=== PATIENT | female | born 1965 | race Caucasian/White ===

== ENCOUNTER 2018-06-28 20:26 | Emergency (ER) | payer BC ==
--- NOTE | 2018-06-28 20:40 | PDOC ---
History of Present Illness - History of Present Illness Initial Comments: The patient is a 52 year old female with a PMHx of high cholesterol and hyperthyroidism, who presents with redness, swelling and itching of right ankle s/p bug bite. The patient states that yesterday she was in [place] and noticed a bug bite on her right ankle. It soon became red, itchy, swollen and painful. She states that she took Motrin 1 hour ago and applied a topical ointment to the affected area. She denies any recent fever, chills, chest pain, shortness of breath, nausea, or vomiting. <Tracey Grimes - Last Filed: 06/28/18 20:53> <Jesús Lorenzana - Last Filed: 06/28/18 22:11> - General Chief Complaint: Bite Stated Complaint: FOOT SWELLING Time Seen by Provider: 06/28/18 20:33 Past History <Tracey Grimes - Last Filed: 06/28/18 20:53> - Past Medical History Thyroid Disease: Yes - Suicide/Smoking/Psychosocial Hx Smoking History: Current every day smoker Have you smoked in the past 12 months: Yes Number of Cigarettes Smoked Daily: 10 'Breaking Loose' booklet given: 11/20/16 Hx Alcohol Use: No Drug/Substance Use Hx: No Substance Use Type: None <Jesús Lorenzana - Last Filed: 06/28/18 22:11> - Past Medical History Allergies/Adverse Reactions: Allergies Allergy/AdvReac Type Severity Reaction Status Date / Time iodine Allergy Verified 11/20/16 04:17 Home Medications: Ambulatory Orders Cephalexin [Keflex] 500 mg PO BID #14 capsule 06/28/18 Levothyroxine [Synthroid -] 88 mcg PO DAILY 06/28/18 Rosuvastatin [Crestor -] 10 mg PO DAILY 06/28/18 Review of Systems - Review of Systems Comments:: A complete review of 10 out of 10 review of systems is taken and is negative apart from what is previously mentioned below and in the HPI. Constitutional: no recent illness; no fever ENT: no sore throat Cardiovascular: no palpitations; no chest pain Pulmonary: no cough; no trouble breathing Gastrointestinal: No nausea; no vomiting; no diarrhea Genitourinary: No urinary problems; no hematuria Skin: + Rt ankle bug bite with itching, swelling and redness. Lymph system: No swollen glands Musculoskeletal: No joint swelling Neurological: No weakness; No numbness; No Headache; no vertigo; no lightheadedness Psychiatric:No anxiety; no depression <Tracey Grimes - Last Filed: 06/28/18 20:53> *Physical Exam - Vital Signs Last Vital Signs Temp Pulse Resp BP Pulse Ox 98.9 F 86 16 150/80 96 06/28/18 20:27 06/28/18 20:27 06/28/18 20:27 06/28/18 20:27 06/28/18 20:27 - Physical Exam Comments: Vitals: Triage Vital signs reviewed General Appearance: no acute distress, well nourished well developed Extremities: Full range of motion to all extremities, no cyanosis, clubbing, or edema Skin: Bug bite to lateral right malleolus with swelling and some blanching faint errythema around foot. <Tracey Grimes - Last Filed: 06/28/18 20:53> ED Treatment Course - Medications Given in the ED: ED Medications Discontinued Medications Generic Name Dose Route Start Last Admin Trade Name Freq PRN Reason Stop Dose Admin Diphenhydramine HCl 50 mg 06/28/18 20:47 06/28/18 20:50 Benadryl - PO 06/28/18 20:48 50 mg ONCE ONE Administration Famotidine 20 mg 06/28/18 20:47 06/28/18 20:50 Pepcid - PO 06/28/18 20:48 20 mg ONCE ONE Administration <Tracey Grimes - Last Filed: 06/28/18 20:53> Medical Decision Making - Medical Decision Making Status post Benadryl rest and elevation swelling improved redness improved at this time history and physical examination consistent with ALLERGIC reaction from bug bite No obvious evidence at this point of infection Recommend rest ice Benadryl at home for the next day however if any redness worsening swelling worsening or streaking red lines or signs or symptoms of infection patient has been provided with a prescription for Keflex she advised to start Keflex and return to ED for any severe worsening symptoms or for any concerns. Findings, the need for follow-up, strict return instructions discussed with patient. <Jesús Lorenzana - Last Filed: 06/28/18 22:11> *DC/Admit/Observation/Transfer - Attestations Scribe Attestion: 06/28/18 20:57 Documentation prepared by Tracey Grimes, acting as medical cash poster for Jesús Lorenzana MD. <Tracey Grimes - Last Filed: 06/28/18 20:53> - Discharge Dispostion Decision to Admit order: No <Jesús Lorenzana - Last Filed: 06/28/18 22:11> Diagnosis at time of Disposition: Rash - Discharge Dispostion Disposition: HOME Condition at time of disposition: Stable - Prescriptions Prescriptions: Cephalexin [Keflex] 500 mg PO BID #14 capsule - Referrals Referrals: [facility] – [place] [facility] [Provider Group] - Patient Instructions Printed Discharge Instructions: DI for Insect Bites and Stings Additional Instructions: Elevate, ice 20 min on 20 min off, rest, Benadryl 50 mg every 6 hrs for 2 days. If any worsening redness, streaking red lines, fever or worsening symptoms, start Keflex as prescribed. Return to the emergency department for any severe worsening symptoms or for any concerns.
[2018-06-28 20:44] VITALS: BP 150/80; PULSE 86; TEMP 98.9; BMI 28.3
[2018-06-28] MEDS ORDERED: diphenhydrAMINE HCL 50 MG CAPSULE PO ONE (20:47)
[2018-06-28] MEDS ORDERED: FAMOTIDINE 20 MG TABLET PO ONE (20:47)
[2018-06-28] MEDS ORDERED: FAMOTIDINE 20 MG TABLET ONE (20:49)
[2018-06-28] MEDS ORDERED: diphenhydrAMINE HCL 50 MG CAPSULE ONE (20:49)
== END 2018-06-28 22:17 | disposition home or self-care (01) ==
LOC: FER 20:26
DX: R21 Rash and other nonspecific skin eruption (principal); E78.00 Pure hypercholesterolemia, unspecified; E07.9 Disorder of thyroid, unspecified
CPT/HCPCS: 99282-25

== ENCOUNTER 2022-02-13 19:25 | Emergency (ER) | payer BC ==
[2022-02-13 19:42] VITALS: BP 131/62; PULSE 73; TEMP 98; BMI 28.3
[2022-02-13] MEDS ORDERED: PIPERACILLIN/TAZOB 3.375 GM 3.375 GM in DEXTROSE 5%-WATER - 50 ML IVPB ONE (19:52)
[2022-02-13] MEDS ORDERED: DIPHTH,PERTUSS(ACELL),TET 0.5 ML DISP.SYRIN IM ONE ×2 (20:31→20:58)
== END 2022-02-13 21:07 | disposition home or self-care (01) ==
LOC: FER 19:25
PROC: 3E0234Z Introduction of Serum, Toxoid and Vaccine into Muscle, Percutaneous Approach (ICD-10-PCS; principal; 2022-02-13)
PROC: 3E03329 Introduction of Other Anti-infective into Peripheral Vein, Percutaneous Approach (ICD-10-PCS; 2022-02-13)
DX: S60.512A Abrasion of left hand, initial encounter (principal); L08.9 Local infection of the skin and subcutaneous tissue, unspecified; W55.03XA Scratched by cat, initial encounter
CPT/HCPCS: 90715; 99285-25